=== PATIENT | male | born 1965 | race Caucasian/White ===

== ENCOUNTER → 2020-12-27 | Outpatient (CLI) | payer OTHER ==
[~2020-12-27] MED LIST: DOXYCYCLINE MO100 MG PO; FLEXERIL10 MG PO; FLOMAX0.4 MG PO; LAMICTAL200 MG PO; MOTRIN800 MG PO; NAPROSYN500 MG PO; PARAFON FORTE500 MG PO; PENICILLIN VK500 MG PO; PRILOSEC40 MG PO; PROSCAR5 MG PO; PROZAC20 MG PO; ROBITUSSIN DAC PO; TRAMADOL HCL50 MG PO; VALIUM5 MG PO; VISTARIL50 MG PO; VITAMIN D1000 IU PO; VOLTAREN75 MG PO
== END | disposition home or self-care (01) ==
LOC: COVID19 16:58
PROVIDERS: ATTEND Internal Medicine
DX: U07.1 COVID-19 (principal)

== ENCOUNTER 2022-05-06 04:06 | Emergency (ER) | payer OTHER ==
[~2022-05-06] VITALS: Ht 170.1 cm; Wt 63.5 kg
== END 2022-05-06 04:30 ==
LOC: ED 04:06
DX: I46.9 Cardiac arrest, cause unspecified (principal); Z98.890 Other specified postprocedural states